=== PATIENT | male | born 1975 | race Caucasian/White ===

== ENCOUNTER → 2020-09-25 09:33 | Outpatient (BNVA) | payer OTHER, SELFPAY | PROVIDERS: PCP Internal Medicine; Referring Provider Internal Medicine; Visit Provider Nurse Practitioner Gerontology | DX: Z76.89 Persons encountering health services in other specified circumstances (principal) ==

== ENCOUNTER → 2020-11-04 09:15 | Outpatient (REF) | payer OTHER, SELFPAY ==
--- NOTE | 2020-11-04 09:19 | CA_ITS ---
Transthoracic Echocardiogram Patient (Last, First, Middle): Robert Amin, Gender: Male Date of : 1975 Age: 45 Procedure Date: 11/04/2020 Procedure Type: Transthoracic Echocardiogram Location: OP Height: 165.1 cm Weight: 86.18 kg BSA: 1.94 m2 Heart Rate: bpm BP: 122 / 54 mmHg Dress Cap Maker: PATY Infante MD: Yoana Horner MD Scratcher Tender: Sreekanth Canas MD Symptoms: I50.9 - Heart failure, unspecified Study Quality: Good ECG Rhythm: Sinus Conclusions: - 1. Mildly reduced LV systolic function with LVEF of 45-50% Findings Left Ventricle Normal left ventricular cavity size. There is normal left ventricular wall thickness. The left ventricular systolic function is mildly decreased. The visually estimated ejection fraction is between 45-50%. Spectral Doppler is indicative of a pseudonormal filling pattern. Pericardium/Pleural There is no evidence of pericardial effusion. Prior Study Comparison No significant change compared to prior study dated: 04/01/2020. Measurements 2D Linear Measurements IVSd: 0.98 0.6-0.9/0.6-1.0 cm LVIDd: 5.01 3.9-5.3/4.2-5.9 cm LVIDd Index: 2.58 2.4-3.2/2.2-3.1 cm/m2 LVIDs: 3.91 2.0-3.6 cm LVPWd: 1.00 0.7-1.1 cm LV Mass: 223.19 67-162/88-224 g LV Mass Index: 115.05 43-95/49-115 g/m2 2D Systolic Function EF 4C: 43.20 >55% EF 2C: 56.20 >55% EF BiP: 51.20 >55% Mitral Valve MV Pk E: 0.96 MV PK A: 0.77 MV Decel Time: 208.00 E/A: 1.20 E'Lateral: 5.33 E'Medial: 6.42 E/E' Med: 15.00 E/E' Lat: 18.00 PHT: 61.00 MVA PHT: 3.61 Decel [place]: 4.63 Diastolic Function MV Pk E: 0.96 MV Pk A: 0.77 E/A: 1.20 E'Medial: 6.42 E/E' Med: 15.00 E' Laterial: 5.33 E/E' Lat: 18.00 Updated in Other Vendor System with Status of Final Sreekanth Canas MD electronically signed on 11/05/2020 2:51:00 PM with status of Final
== END ==
LOC: HO.CARD 09:15
PROVIDERS: PCP Internal Medicine; Visit Provider Internal Medicine
DX: I50.9 Heart failure, unspecified (principal)
CPT/HCPCS: 93308

== ENCOUNTER → 2020-11-12 14:24 | Outpatient (BNVA) | payer OTHER, SELFPAY | PROVIDERS: PCP Internal Medicine; Visit Provider Internal Medicine ==

== ENCOUNTER 2021-02-03 17:03 | Outpatient (REF) | payer OTHER, SELFPAY ==
--- NOTE | ~2021-02-03 | XR_ITS ---
EXAMINATION: LUMBAR SPINE X-RAY CLINICAL INFORMATION: Low back pain COMPARISON: None TECHNIQUE: 3 views of the lumbar spine FINDINGS: There is a transitional vertebral body segment or 6 lumbar-type vertebral bodies. Bone alignment is normal. No fracture or dislocation is seen. Disc spaces are normal. XR/XR chest 2V IMPRESSION: Transitional vertebral body segment or 6 lumbar-type vertebral bodies. Otherwise unremarkable exam. EXAMINATION: Chest x-ray CLINICAL INFORMATION: TB COMPARISON: Previous chest x-rays most recent January 2020 TECHNIQUE: Two-view chest FINDINGS: The cardiac and mediastinal contours are normal. The lungs are clear. There is no pleural effusion or pneumothorax. Bony structures are unremarkable. IMPRESSION: Unremarkable examination.
--- NOTE | ~2021-02-03 | XR_ITS ---
EXAMINATION: LUMBAR SPINE X-RAY CLINICAL INFORMATION: Low back pain COMPARISON: None TECHNIQUE: 3 views of the lumbar spine FINDINGS: There is a transitional vertebral body segment or 6 lumbar-type vertebral bodies. Bone alignment is normal. No fracture or dislocation is seen. Disc spaces are normal. XR/XR lumbar spine 2-3V IMPRESSION: Transitional vertebral body segment or 6 lumbar-type vertebral bodies. Otherwise unremarkable exam. EXAMINATION: Chest x-ray CLINICAL INFORMATION: TB COMPARISON: Previous chest x-rays most recent January 2020 TECHNIQUE: Two-view chest FINDINGS: The cardiac and mediastinal contours are normal. The lungs are clear. There is no pleural effusion or pneumothorax. Bony structures are unremarkable. IMPRESSION: Unremarkable examination.
== END 2021-02-03 17:04 | disposition home or self-care (01) ==
LOC: HO.XRAY 17:03
PROVIDERS: PCP Internal Medicine; Visit Provider Internal Medicine
DX: M54.5 Low back pain (principal); A15.9 Respiratory tuberculosis unspecified
CPT/HCPCS: 71046; 72100

== ENCOUNTER 2021-03-27 13:17 | Outpatient (REF) | payer OTHER, SELFPAY ==
[2021-03-27 14:39] LABS: Microalbum/Creatinine Ratio Ur 4.9 ug/mg cr
[2021-03-27 14:40] LABS: Estimated Average Glucose 197 mg/dL; Hemoglobin A1c % 8.5 %
[2021-03-27 14:41] LABS: B Type Natriuretic Peptide 23 pg/mL (<100)
[2021-03-27 14:44] LABS: Alanine Aminotransferase 15 U/L (0-40); Albumin Level 4.5 g/dL (3.5-5.0); Alkaline Phosphatase 91 U/L (39-117); Anion Gap 13 (12-20); Aspartate Amino Transferase 17 U/L (5-37); Bilirubin Total 0.6 mg/dL (0.0-1.0); Blood Urea Nitrogen 26 mg/dL (9-16); Calcium 9.9 mg/dL (8.4-10.2); Carbon Dioxide 30 mmol/L (22-29); Chloride 103 mmol/L (96-108); Cholesterol 157 mg/dL; Estimated Glomerular Filt Rate 54; Glucose Fasting 148 mg/dL (60-99); HDL Cholesterol 51 mg/dL; LDL Cholesterol Calculated 91 mg/dl; Sodium 142 mmol/L (135-145); Total Protein 7.3 g/dL (6.5-8.0); Triglycerides 78 mg/dL
[2021-03-28 08:36] LABS: NT-proBNP 259 pg/mL
[2021-03-29 20:12] LABS: TS Negative Control Passed; TS Panel A 0; TS Panel B 0; TS Positive Control Passed; TSpotTB Negative (SeeBelow)
[2021-04-03 13:52] LABS: Vitamin D 25-OH, D2 <4 ng/mL; Vitamin D 25-OH, D3 17 ng/mL; Vitamin D 25-OH, Total 17 ng/mL (30-100)
== END 2021-03-27 13:18 | disposition home or self-care (01) ==
LOC: HO.LAB 13:17
PROVIDERS: Nurse Practitioner Gerontology; PCP Internal Medicine; Visit Provider Internal Medicine
DX: E11.65 Type 2 diabetes mellitus with hyperglycemia (principal); E55.9 Vitamin D deficiency, unspecified; E78.5 Hyperlipidemia, unspecified; Z79.4 Long term (current) use of insulin; Z11.1 Encounter for screening for respiratory tuberculosis
CPT/HCPCS: 36415; 80053; 80061; 82043; 82306; 83036; 83880; 86481

== ENCOUNTER → 2021-04-14 08:06 | Outpatient (BNVA) | payer OTHER, SELFPAY | PROVIDERS: PCP Internal Medicine; Visit Provider Nurse Practitioner Gerontology | DX: E11.65 Type 2 diabetes mellitus with hyperglycemia (principal); E78.5 Hyperlipidemia, unspecified; E55.9 Vitamin D deficiency, unspecified; I10 Essential (primary) hypertension; Z79.4 Long term (current) use of insulin | CPT/HCPCS: 82947; 99212 ==

== ENCOUNTER → 2021-05-04 15:02 | Outpatient (BNVA) | payer OTHER, SELFPAY | PROVIDERS: PCP Internal Medicine; Referring Provider Internal Medicine; Visit Provider Internal Medicine | DX: I42.8 Other cardiomyopathies (principal); I50.32 Chronic diastolic (congestive) heart failure; I10 Essential (primary) hypertension; E11.65 Type 2 diabetes mellitus with hyperglycemia; Z79.4 Long term (current) use of insulin | CPT/HCPCS: 93005; 99212 ==

== ENCOUNTER → 2021-07-14 08:29 | Outpatient (BNVA) | payer OTHER, SELFPAY | PROVIDERS: Visit Provider Nurse Practitioner Gerontology ==